=== PATIENT | female | born 1935 | race Caucasian/White ===

== ENCOUNTER 2016-06-12 06:27 | Day surgery (SDC) | payer OTHER, MEDICARE ==
[2016-06-11 14:50] VITALS: BMI 24.1
[2016-06-12] MEDS ORDERED: PROPOFOL 20 ML ONE ×2 (07:45)
[2016-06-12] MEDS ORDERED: LIDOCAINE HCL 2% (20ML MULTI-DOSE VIAL) NR ONE (07:45)
[2016-06-12] MEDS ORDERED: ETOMIDATE 20 MG/10 ML AMPUL IVPUSH ONE (08:22)
[2016-06-12 09:26] VITALS: TEMP 97.6
[2016-06-12 10:18] VITALS: BP 144/58; PULSE 65
--- NOTE | 2016-06-13 13:59 | PATH ---
Surgical Pathology Report Patient Name: WINSTON CORONA [facility]. Rec. #: [id number] /Age/Gender: 1935 (Age: 81) / F Account: [id number] Location: U-ENDOSCOPY Taken: 06/12/2016 Received: 06/12/2016 Reported: 06/13/2016 Physicians: Alirio Norman M.D. Specimen(s) Received A: BX DESCENDING COLON POLYP B: BX SIGMOID POLYP Clinical History History of GIST, adenoma Positive cologuard Polyps, diverticulosis, redundant colon Final Diagnosis A. COLON, DESCENDING, BIOPSY: COLONIC MUCOSA WITH NO PATHOLOGIC CHANGES. NO ADENOMATOUS OR HYPERPLASTIC CHANGES IDENTIFIED. B. COLON, SIGMOID, BIOPSY: HYPERPLASTIC POLYP. Electronically Signed Hipolito Tucker M.D. Gross Description A. Received in formalin, labeled "biopsy descending colon polyp" is a prater, irregular portion of soft tissue measuring 0.5 cm. in greatest dimension. The specimen is submitted in toto in one cassette. B. Received in formalin, labeled "biopsy sigmoid polyp" is a prater, irregular portion of soft tissue measuring 0.4 cm. in greatest dimension. The specimen is submitted in toto in one cassette. 06/12/201606/12/2016
== END 2016-06-12 10:18 | disposition home or self-care (01) ==
LOC: JASU-ENDO 06:27
PROVIDERS: ATTEND Internal Medicine Gastroenterology
PROC: 0DBN8ZX Excision of Sigmoid Colon, Via Natural or Artificial Opening Endoscopic, Diagnostic (ICD-10-PCS; 2016-06-12)
PROC: 0DBM8ZX Excision of Descending Colon, Via Natural or Artificial Opening Endoscopic, Diagnostic (ICD-10-PCS; principal; 2016-06-12 08:00)
DX: D12.4 Benign neoplasm of descending colon (principal); D12.5 Benign neoplasm of sigmoid colon; K57.30 Diverticulosis of large intestine without perforation or abscess without bleeding; K64.8 Other hemorrhoids; K92.1 Melena
CPT/HCPCS: 88305-TC

== ENCOUNTER 2016-11-10 10:42 | Day surgery (SDC) | payer OTHER, MEDICARE ==
[2016-11-10] MEDS ORDERED: PROPOFOL 20 ML ONE (11:08)
[2016-11-10 11:32] VITALS: BMI 22.6
[2016-11-10 12:12] VITALS: TEMP 97.9
[2016-11-10 13:54] VITALS: BP 140/64; PULSE 70
--- NOTE | 2016-11-11 13:13 | PATH ---
Surgical Pathology Report Patient Name: WINSTON CORONA [facility]. Rec. #: [id number] /Age/Gender: 1935 (Age: 81) / F Account: [id number] Location: U-ENDOSCOPY Taken: 11/10/2016 Received: 11/10/2016 Reported: 11/11/2016 Physicians: Alirio Norman M.D. Specimen(s) Received A: BIOPSY GASTRIC POUCH B: BIOPSY GASTROESOPHAGEAL ANASTOMOSIS Clinical History Gastrointestinal stromal tumor Diverticulum esophagus, nodule gastric pouch, gastroesophageal anastomosis Final Diagnosis A. GASTRIC POUCH, BIOPSY: GASTRIC MUCOSA WITH MODERATE CHRONIC GASTRITIS AND REACTIVE GASTROPATHY. NO MALIGNANCY IDENTIFIED. IMMUNOSTAIN FOR H. PYLORI IS NEGATIVE FOR ORGANISMS. B. GASTROESOPHAGEAL ANASTOMOSIS, BIOPSY: SQUAMOUS MUCOSA WITH CHRONIC INFLAMMATION AND REFLUX TYPE CHANGES. NO COLUMNAR EPITHELIUM PRESENT. NO MALIGNANCY IDENTIFIED. Electronically Signed Ubaldo Mendez M.D. Gross Description A. Received in formalin, labeled "biopsy gastric pouch" are 3 prater, irregular portions of soft tissue ranging from 0.2-0.4 cm in greatest dimension. The specimens are submitted in toto in one cassette. B. Received in formalin, labeled "biopsy gastroesophageal anastomosis" is a prater, irregular portion of soft tissue measuring 0.2 cm in greatest dimension. The specimen is submitted in toto in one cassette. 11/10/201611/10/2016
== END 2016-11-10 14:10 | disposition home or self-care (01) ==
LOC: JASU-ENDO 10:42
PROVIDERS: ATTEND Internal Medicine Gastroenterology
PROC: 0DB68ZX Excision of Stomach, Via Natural or Artificial Opening Endoscopic, Diagnostic (ICD-10-PCS; 2016-11-10)
PROC: 0DB48ZX Excision of Esophagogastric Junction, Via Natural or Artificial Opening Endoscopic, Diagnostic (ICD-10-PCS; principal; 2016-11-10 12:00)
DX: K29.50 Unspecified chronic gastritis without bleeding (principal); K21.0 Gastro-esophageal reflux disease with esophagitis
CPT/HCPCS: 88305-TC; 88342-TC

== ENCOUNTER 2020-12-12 04:46 | Day surgery (SDC) | payer OTHER, MEDICARE ==
[2020-12-06 14:03] VITALS: BMI 22.3
[2020-12-12 11:22] VITALS: TEMP 97.5
[2020-12-12 12:32] VITALS: BP 124/74; PULSE 72
== END 2020-12-12 12:32 | disposition home or self-care (01) ==
LOC: JASU-ENDO 04:46
PROVIDERS: ATTEND Internal Medicine Gastroenterology
PROC: 0DB68ZX Excision of Stomach, Via Natural or Artificial Opening Endoscopic, Diagnostic (ICD-10-PCS; 2020-12-12)
PROC: 0DB48ZX Excision of Esophagogastric Junction, Via Natural or Artificial Opening Endoscopic, Diagnostic (ICD-10-PCS; 2020-12-12)
PROC: 0DB98ZX Excision of Duodenum, Via Natural or Artificial Opening Endoscopic, Diagnostic (ICD-10-PCS; principal; 2020-12-12 10:30)
DX: K21.00 Gastro-esophageal reflux disease with esophagitis, without bleeding (principal); K29.50 Unspecified chronic gastritis without bleeding

== ENCOUNTER 2023-02-16 04:14 | Day surgery (SDC) | payer OTHER, MEDICARE ==
[2023-02-16 11:31] VITALS: RESP 18; BMI 22.0
[2023-02-16] MEDS ORDERED: PROPOFOL 20 ML ONE (13:33)
[2023-02-16] MEDS ORDERED: LIDOCAINE HCL/PF 2% SDV 5ML VIAL ONE (13:33)
[2023-02-16] MEDS ORDERED: PROMETHAZINE HCL 25 MG/1 ML VIAL IVPB PRN (13:52)
[2023-02-16] MEDS ORDERED: ONDANSETRON 4 MG/2 ML VIAL IVPUSH PRN (13:52)
[2023-02-16] MEDS ORDERED: LACTATED RINGERS SOLUTION 1,000 ML IV SCH (14:00)
[2023-02-16] MEDS ORDERED: DEXAMETHASONE SOD PHOSPHATE 4 MG/1 ML VIAL ONE (14:04)
[2023-02-16] MEDS ORDERED: ONDANSETRON 4 MG/2 ML VIAL ONE (14:04)
[2023-02-16] MEDS ORDERED: KETOROLAC TROMETHAMINE 30 MG/1 ML VIAL ONE (14:17)
[2023-02-16 17:14] VITALS: BP 135/57; PULSE 77; TEMP 98
== END 2023-02-16 17:00 | disposition home or self-care (01) ==
LOC: JASU-SURG 04:14
PROVIDERS: ATTEND Urology
PROC: 0TJB8ZZ Inspection of Bladder, Via Natural or Artificial Opening Endoscopic (ICD-10-PCS; principal; 2023-02-16 13:00)
PROC: BT1FYZZ Fluoroscopy of Left Kidney, Ureter and Bladder using Other Contrast (ICD-10-PCS; 2023-02-16 13:00)
DX: N13.1 Hydronephrosis with ureteral stricture, not elsewhere classified (principal); Q63.1 Lobulated, fused and horseshoe kidney
CPT/HCPCS: 76000-TC-FY; 94760; C1758

== ENCOUNTER 2023-12-14 14:28 | Observation (INO) | payer OTHER, MEDICARE ==
[2023-12-14 14:49] VITALS: BMI 20.1
[2023-12-14] MEDS: SODIUM CHLORIDE 1,000 ML IV SCH (18:48)
[2023-12-14 18:49] LABS: BASO % 0.2 % (0-2.0); HEMATOCRIT 30.2 % (32.4-45.2); HEMOGLOBIN 9.9 GM/dL (10.7-15.3); LYMPH % 10.8 % (8-40); MCH 33.1 pg (25.7-33.7); MCHC 32.9 g/dl (32.0-36.0); MEAN CELL VOLUME 100.8 fl (80-96); MEAN PLT VOLUME 8.3 fl (7.5-11.1); MONO % 2.2 % (3.8-10.2); NEUT % 86.8 % (42.8-82.8); PLATELET COUNT 192 10^3/uL (134-434); RDW 13.7 % (11.6-15.6); WHITE BLOOD COUNT 6.1 K/mm3 (4.0-10.0)
[2023-12-14 18:56] LABS: INR 1.05 (0.83-1.09); PROTHROMBIN TIME (PATIENT) 12.1 SEC (9.7-13.0)
[2023-12-14 18:59] LABS: ACTIVATED PTT 27.3 SECONDS (25.2-36.5)
[2023-12-14 19:08] LABS: POTASSIUM 4.2 mmol/L (3.5-5.1)
[2023-12-14 19:12] LABS: ALBUMIN 3.7 g/dl (3.4-5.0); CALCIUM 9.2 mg/dL (8.5-10.1)
[2023-12-14 19:15] LABS: CREATININE 0.9 mg/dL (0.55-1.3)
[2023-12-14 19:17] LABS: BILIRUBIN,TOTAL 0.6 mg/dL (0.2-1); TOT PROT 6.8 g/dl (6.4-8.2)
[2023-12-14] MEDS ORDERED: CEFTRIAXONE 1 GM/50 ML BAG ONE (20:55)
[2023-12-14] MEDS: CEFTRIAXONE 1 GM in DEXTROSE 5%-WATER - 100 ML IVPB ONE (20:56)
[2023-12-14] MEDS ORDERED: AZITHROMYCIN IVPB 500 MG/250 ML BAG IVPB ONE (21:24)
[2023-12-14] MEDS: AZITHROMYCIN IVPB 500 MG in DEXTROSE 5%-WATER - 250 ML IVPB ONE (22:13)
[2023-12-15] MEDS: ACETAMINOPHEN 325 MG TABLET (FP) PO PRN (00:40)
[2023-12-15 08:59] LABS: POTASSIUM 3.8 mmol/L (3.5-5.1)
[2023-12-15 09:05] LABS: CALCIUM 9.1 mg/dL (8.5-10.1)
[2023-12-15 09:06] LABS: BLOOD UREA NITROGEN 18.9 mg/dL (7-18)
[2023-12-15 09:08] LABS: CREATININE 0.9 mg/dL (0.55-1.3)
[2023-12-15 09:22] LABS: BASO % 0.3 % (0-2.0); EOS % 0.6 % (0-4.5); HEMATOCRIT 27.9 % (32.4-45.2); HEMOGLOBIN 9.3 GM/dL (10.7-15.3); LYMPH % 37.5 % (8-40); MCH 33.8 pg (25.7-33.7); MCHC 33.2 g/dl (32.0-36.0); MEAN CELL VOLUME 101.9 fl (80-96); MEAN PLT VOLUME 8.8 fl (7.5-11.1); MONO % 14.3 % (3.8-10.2); NEUT % 47.3 % (42.8-82.8); PLATELET COUNT 176 10^3/uL (134-434); RBC 2.74 M/mm3 (3.60-5.2); RDW 13.5 % (11.6-15.6); WHITE BLOOD COUNT 5.8 K/mm3 (4.0-10.0)
[2023-12-15] MEDS: PANTOPRAZOLE SODIUM 40 MG VIAL IVPUSH SCH (10:40)
[2023-12-15] MEDS: CEFTRIAXONE 1 G/50 ML PREMIX 50 ML IVPB SCH (10:40)
[2023-12-15] MEDS: MONTELUKAST NA 10 MG TABLET PO SCH (10:41)
[2023-12-15] MEDS: ASPIRIN COATED 81 MG TABLET.EC PO SCH (10:41)
[2023-12-15] MEDS: AZITHROMYCIN IVPB 500 MG/250 ML BAG IVPB SCH (10:42)
[2023-12-16] MEDS: PANTOPRAZOLE 40 MG TABLET PO SCH (10:05)
[2023-12-17] MEDS: AMOX TR/POT CLAV 500MG/125MG TABLETS (FP) PO SCH (10:22)
[2023-12-17] MEDS: ATORVASTATIN CA 10 MG TABLET (FP) PO SCH (22:11)
[2023-12-18 14:50] VITALS: RESP 18
[2023-12-18 15:20] VITALS: BP 123/58; PULSE 77; TEMP 97.7
== END 2023-12-18 16:19 | disposition home or self-care (01) ==
LOC: JER 14:28 → JERBED 20:49 → J4S 22:48
PROVIDERS: ADMIT Internal Medicine; ATTEND Family Medicine
PROC: 3E033GC Introduction of Other Therapeutic Substance into Peripheral Vein, Percutaneous Approach (ICD-10-PCS; principal; 2023-12-14)
PROC: 3E03329 Introduction of Other Anti-infective into Peripheral Vein, Percutaneous Approach (ICD-10-PCS; 2023-12-14)
PROC: 3E0337Z Introduction of Electrolytic and Water Balance Substance into Peripheral Vein, Percutaneous Approach (ICD-10-PCS; 2023-12-14)
DX: J44.9 Chronic obstructive pulmonary disease, unspecified (principal); I10 Essential (primary) hypertension; Z85.028 Personal history of other malignant neoplasm of stomach; J18.9 Pneumonia, unspecified organism; Z90.49 Acquired absence of other specified parts of digestive tract; R26.81 Unsteadiness on feet; F41.9 Anxiety disorder, unspecified; K21.9 Gastro-esophageal reflux disease without esophagitis; D64.9 Anemia, unspecified; Z87.891 Personal history of nicotine dependence; Z87.442 Personal history of urinary calculi
CPT/HCPCS: 36415; 70450-TC; 70551-TC; 71046-TC-FY; 71250-TC; 74230-TC-FY; 80048; 80053; 80061; 82550; 83036; 84443; 84484; 85025; 85610; 85730; 86850; 86900; 86901; 87040; 87086; 87899; 92611-GN; 93005; 93010; 96361; 96365; 96366; 96367; 96368; 96375; 97116-GP; 97161-GP; 99285-25; G0378